=== PATIENT | male | born 1980 | race Caucasian/White ===

== ENCOUNTER 2019-01-07 22:56 | Emergency (ER) | payer OTHER ==
[~2019-01-07] VITALS: Ht 182.9 cm; Wt 104.1 kg
[2019-01-07 22:56] VITALS: BP 143/77
[2019-01-07] MEDS ORDERED: PENICILLIN V POTASSIUM 500 MG TAB PO ONE (23:15)
[2019-01-07] MEDS ORDERED: IBUPROFEN 600 MG TAB PO ONE (23:15)
[2019-01-07] MEDS ORDERED: NAPR-837 PO (23:21)
[2019-01-07] MEDS ORDERED: PENI500T PO (23:21)
== END 2019-01-08 00:30 | disposition home or self-care (01) ==
LOC: M ED 22:56
DX: K04.7 Periapical abscess without sinus (principal); K02.9 Dental caries, unspecified; F17.210 Nicotine dependence, cigarettes, uncomplicated

== ENCOUNTER 2020-07-05 15:11 | Outpatient (RCR) | payer OTHER ==
[~2020-07-05 15:11] MED LIST: NAPR-837 PO; PENI500T PO
== END 2020-07-08 ==
LOC: M PT 15:11
PROVIDERS: ATTEND Internal Medicine
DX: M54.5 Low back pain (principal); M54.2 Cervicalgia; M25.512 Pain in left shoulder

== ENCOUNTER 2020-07-19 15:15 | Outpatient (RCR) | payer OTHER | END 2020-08-07 | LOC: M PT 15:15 | PROVIDERS: ATTEND Internal Medicine | DX: M54.5 Low back pain (principal); M54.2 Cervicalgia; M25.512 Pain in left shoulder ==

== ENCOUNTER 2022-08-28 16:25 | Emergency (ER) | payer OTHER ==
[~2022-08-28] VITALS: Ht 182.9 cm; Wt 123.8 kg
[2022-08-28] MEDS ORDERED: LEVO50TA5 (16:43)
[2022-08-28] MEDS ORDERED: LEVO200T4 (16:43)
[2022-08-28 22:25] LABS: BASO # 0.1 10^3/uL (0.0-0.2); BASO % 0.5 % (0.0-1.0); EOS # 0.4 10^3/uL (0.0-0.5); HEMATOCRIT 48.9 % (42.0-52.0); HEMOGLOBIN 15.7 g/dl (13.5-17.5); LYMPH # 2.9 10^3/uL (1.5-5.0); LYMPH % 21.2 % (24.0-44.0); MEAN CORPUSCULAR HEMOGLOBIN 29.8 pg (27.0-33.0); MEAN CORPUSCULAR HGB CONC 32.1 g/dl (32.0-36.5); MONO # 0.9 10^3/uL (0.0-0.8); MONO % 6.5 % (2.0-8.0); NEUTROPHILS # 9.5 10^3/uL (1.5-8.5); NEUTROPHILS % 68.4 % (36.0-66.0); PLATELET COUNT, AUTOMATED 327 10^3/uL (150-450); RED BLOOD COUNT 5.26 10^6/uL (4.30-6.10); WHITE BLOOD COUNT 13.8 10^3/uL (4.0-10.0)
[2022-08-28 22:37] LABS: BLOOD UREA NITROGEN 13 MG/DL (9-23); CALCIUM LEVEL 8.9 MG/DL (8.5-10.1); CARBON DIOXIDE LEVEL 25 MMOL/L (20-31); CHLORIDE LEVEL 107 MMOL/L (98-107); GLOMERULAR FILTRATION RATE > 60.0 (>60); GLUCOSE, FASTING 80 MG/DL (60-100); POTASSIUM SERUM 3.9 MMOL/L (3.5-5.1); SODIUM LEVEL 141 MMOL/L (136-145)
[2022-08-28 22:59] LABS: MONO SCRN NEGATIVE (NEGATIVE)
[2022-08-28] MEDS ORDERED: PRED20TA PO (23:04)
[2022-08-28] MEDS ORDERED: AMOX875T2 PO (23:04)
[2022-08-28] MEDS ORDERED: AUGMENTIN 875 MG TAB PO ONE (23:05)
[2022-08-28 23:38] VITALS: BP 121/69
== END 2022-08-28 23:40 | disposition home or self-care (01) ==
LOC: M ED 16:25
DX: J36 Peritonsillar abscess (principal); E03.9 Hypothyroidism, unspecified; F17.200 Nicotine dependence, unspecified, uncomplicated; Z79.899 Other long term (current) drug therapy

== ENCOUNTER → 2023-12-10 | Outpatient (CLI) | payer OTHER ==
[~2023-12-10] MED LIST changes: +AMOX875T2 PO; +LEVO200T4; +LEVO50TA5; +PRED20TA PO
[2023-12-10 14:01] LABS: HEMATOCRIT 48.2 % (42.0-52.0); MEAN CORPUSCULAR HEMOGLOBIN 30.6 pg (27.0-33.0); MEAN CORPUSCULAR HGB CONC 33.2 g/dl (32.0-36.5); MEAN CORPUSCULAR VOLUME 92.2 fl (80.0-96.0); PLATELET COUNT, AUTOMATED 343 10^3/uL (150-450); RED BLOOD COUNT 5.23 10^6/uL (4.30-6.10); WHITE BLOOD COUNT 9.5 10^3/uL (4.0-10.0)
[2023-12-10 14:22] LABS: HEMOGLOBIN A1c 5.3 % (4.0-6.0)
[2023-12-10 14:34] LABS: ALBUMIN 3.7 G/DL (3.2-5.2); ALKALINE PHOSPHATASE 92 U/L (46-116); ALT/SGPT 20 U/L (7.0-40); AST/SGOT 11 U/L (<34); BILIRUBIN,TOTAL 0.7 MG/DL (0.3-1.2); BLOOD UREA NITROGEN 15 MG/DL (9-23); CALCIUM LEVEL 9.1 MG/DL (8.5-10.1); CARBON DIOXIDE LEVEL 29 MMOL/L (20-31); CHLORIDE LEVEL 107 MMOL/L (98-107); CHOLESTEROL LEVEL 214 MG/DL (<200); CHOLESTEROL RISK RATIO 6.46 (<5); GLOMERULAR FILTRATION RATE > 60.0 (>60); GLUCOSE, FASTING 96 MG/DL (60-100); HDL CHOLESTEROL 33.1 MG/DL (>40); LDL CHOLESTEROL 147.5 MG/DL (<100); NON-HDL-C 180.9 MG/DL; POTASSIUM SERUM 4.6 MMOL/L (3.5-5.1); SODIUM LEVEL 140 MMOL/L (136-145); TOTAL PROTEIN 6.8 G/DL (5.7-8.2); TRIGLYCERIDES LEVEL 167 MG/DL (<150)
[2023-12-10 14:35] LABS: FREE T4 1.54 NG/DL (0.89-1.76)
[2023-12-10 14:36] LABS: THYROID STIMULATING HORMONE 0.131 uIU/ML (0.55-4.78)
== END ==
LOC: M LAB 12:55
PROVIDERS: ATTEND Internal Medicine
DX: E03.9 Hypothyroidism, unspecified (principal); Z79.899 Other long term (current) drug therapy; E66.9 Obesity, unspecified

== ENCOUNTER → 2024-01-21 | Outpatient (CLI) | payer MEDICAID | LOC: M OUTALCOH 07:42 | PROVIDERS: ATTEND Psychiatry & Neurology Psychiatry | DX: F10.10 Alcohol abuse, uncomplicated (principal); F12.10 Cannabis abuse, uncomplicated; Z72.0 Tobacco use ==

== ENCOUNTER 2024-02-05 16:00 | Outpatient (RCR) | payer MEDICAID | END 2024-02-06 | LOC: M OUTALCOH 16:00 | PROVIDERS: ATTEND Psychiatry & Neurology Psychiatry | DX: F10.10 Alcohol abuse, uncomplicated (principal); F12.10 Cannabis abuse, uncomplicated; Z72.0 Tobacco use ==

== ENCOUNTER 2024-03-04 16:00 | Outpatient (RCR) | payer MEDICAID | END 2024-03-07 | LOC: M OUTALCOH 16:00 | PROVIDERS: ATTEND Psychiatry & Neurology Psychiatry | DX: F10.10 Alcohol abuse, uncomplicated (principal); F12.10 Cannabis abuse, uncomplicated; Z72.0 Tobacco use ==

== ENCOUNTER 2024-04-01 15:30 | Outpatient (RCR) | payer MEDICAID | END 2024-04-07 | LOC: M OUTALCOH 15:30 | PROVIDERS: ATTEND Psychiatry & Neurology Psychiatry | DX: F10.10 Alcohol abuse, uncomplicated (principal); F12.10 Cannabis abuse, uncomplicated; Z72.0 Tobacco use ==

== ENCOUNTER → 2024-07-20 | Outpatient (REF) | payer MEDICAID ==
[2024-07-20 18:16] LABS: BASO # 0.1 10^3/uL (0.0-0.2); EOS # 0.6 10^3/uL (0.0-0.5); EOS % 5.1 % (0.0-3.0); HEMATOCRIT 47.8 % (42.0-52.0); HEMOGLOBIN 15.6 g/dl (13.5-17.5); LYMPH # 5.1 10^3/uL (1.5-5.0); LYMPH % 40.7 % (24.0-44.0); MEAN CORPUSCULAR HEMOGLOBIN 30.5 pg (27.0-33.0); MEAN CORPUSCULAR HGB CONC 32.6 g/dl (32.0-36.5); MEAN CORPUSCULAR VOLUME 93.4 fl (80.0-96.0); NEUTROPHILS # 5.6 10^3/uL (1.5-8.5); NEUTROPHILS % 44.9 % (36.0-66.0); PLATELET COUNT, AUTOMATED 370 10^3/uL (150-450); RED BLOOD COUNT 5.12 10^6/uL (4.30-6.10); WHITE BLOOD COUNT 12.6 10^3/uL (4.0-10.0)
[2024-07-20 18:33] LABS: ALBUMIN 3.7 G/DL (3.2-5.2); ALKALINE PHOSPHATASE 83 U/L (40-129); ALT/SGPT 26 U/L (7.0-40); AST/SGOT 13 U/L (<34); BILIRUBIN,TOTAL 0.2 MG/DL (0.3-1.2); BLOOD UREA NITROGEN 16 MG/DL (9-23); CALCIUM LEVEL 10.2 MG/DL (8.5-10.1); CARBON DIOXIDE LEVEL 28 MMOL/L (20-31); CHLORIDE LEVEL 109 MMOL/L (98-107); CHOLESTEROL LEVEL 250 MG/DL (<200); CHOLESTEROL RISK RATIO 7.96 (<5); CREATININE FOR GFR 0.98 MG/DL (0.70-1.30); GLOMERULAR FILTRATION RATE > 60.0 (>60); GLUCOSE, FASTING 81 MG/DL (60-100); HDL CHOLESTEROL 31.4 MG/DL (>40); NON-HDL-C 218.6 MG/DL; POTASSIUM SERUM 4.4 MMOL/L (3.5-5.1); SODIUM LEVEL 142 MMOL/L (136-145); TRIGLYCERIDES LEVEL 410 MG/DL (<150)
[2024-07-20 18:35] LABS: TOTAL 25(OH) VITAMIN D 55.2 NG/ML (20.0-100.0)
[2024-07-20 18:36] LABS: THYROID STIMULATING HORMONE 0.529 uIU/ML (0.55-4.78)
== END ==
LOC: M LAB REF 17:16
PROVIDERS: ATTEND Pediatrics
DX: E03.9 Hypothyroidism, unspecified (principal); E78.5 Hyperlipidemia, unspecified; E55.9 Vitamin D deficiency, unspecified

== ENCOUNTER → 2024-11-01 | Outpatient (REF) | payer MEDICAID, OTHER ==
[2024-11-01 14:23] LABS: CHOLESTEROL LEVEL 231 MG/DL (<200); CHOLESTEROL RISK RATIO 7.12 (<5); HDL CHOLESTEROL 32.4 MG/DL (>40); NON-HDL-C 198.6 MG/DL; TRIGLYCERIDES LEVEL 448 MG/DL (<150)
[2024-11-01 14:25] LABS: THYROID STIMULATING HORMONE 2.007 uIU/ML (0.55-4.78)
== END ==
LOC: M LAB REF 11:58
PROVIDERS: ATTEND Pediatrics
DX: E78.5 Hyperlipidemia, unspecified (principal); E03.9 Hypothyroidism, unspecified

== ENCOUNTER → 2024-11-10 | Outpatient (REF) | payer OTHER | LOC: M SMT 12:47 | PROVIDERS: ATTEND Urology | DX: Z30.2 Encounter for sterilization (principal) ==

== ENCOUNTER → 2025-05-25 | Outpatient (REF) | payer OTHER ==
[~2025-05-25] MED LIST changes: +FAMO40TA3 PO; -LEVO200T4; +LEVO200T4 PO; +OMEP10CASR PO; +SYMB16INH INH
[2025-05-25 14:30] LABS: CHOLESTEROL LEVEL 253.0 MG/DL (<200); CHOLESTEROL RISK RATIO 6.67 (<5); LDL CHOLESTEROL 173.1 MG/DL (<100); NON-HDL-C 215.1 MG/DL; TRIGLYCERIDES LEVEL 210.0 MG/DL (<150)
== END ==
LOC: M LAB REF 12:00
PROVIDERS: ATTEND Pediatrics
DX: E78.5 Hyperlipidemia, unspecified (principal); E03.9 Hypothyroidism, unspecified